=== PATIENT | male | born 1990 | race Caucasian/White ===

== ENCOUNTER 2016-10-22 19:20 | Inpatient (IN) | payer OTHER ==
[~2016-10-22] VITALS: Ht 177.8 cm; Wt 68.0 kg
--- NOTE | 2016-10-22 19:55 | NUR ---
INTAKE ASSESSMENT BP: 135/66, HR:86, RR:18, SpO2:97%, T:98.0 Pt is in stable condition and able to be admitted on the unit. Unit protocols regarding medications and vital signs Q4H were explained. Pt verbalized understanding. Will continue admission upon arrival on the unit.
[2016-10-22 20:00] VITALS: BP 135/66
[2016-10-22] MEDS ORDERED: MIRALAX 17 GM POWD.PACK PO PRN (20:15)
[2016-10-22] MEDS ORDERED: LORAZEPAM 2 MG/1 ML VIAL IM PRN (20:15)
[2016-10-22] MEDS ORDERED: MAG HYDROX/AL HYDROX/SIMETH 30 ML LIQUID UDC PO PRN (20:15)
[2016-10-22] MEDS ORDERED: ONDANSETRON 4 MG/2 ML VIAL IM PRN (20:15)
[2016-10-22] MEDS ORDERED: LORAZEPAM 1 MG TABLET PO PRN ×2 (20:15)
[2016-10-22] MEDS ORDERED: ACETAMINOPHEN 325 MG TABLET PO PRN (20:15)
[2016-10-22] MEDS ORDERED: BUPRENORPHINE HCL 2 MG TAB.SUBL SL PRN (20:15)
[2016-10-22] MEDS ORDERED: IBUPROFEN 600 MG TABLET PO PRN (20:15)
[2016-10-22] MEDS ORDERED: LOPERAMIDE HCL 2 MG CAPSULE PO PRN ×2 (20:15)
[2016-10-22] MEDS ORDERED: DICYCLOMINE HCL 20 MG TABLET PO PRN (20:15)
[2016-10-22] MEDS ORDERED: ONDANSETRON ODT 4 MG TAB.RAPDIS SL PRN (20:15)
--- NOTE | 2016-10-22 20:30 | NUR ---
ADMISSION NOTE Pt arrived ambulatory from [facility] to the third floor accompanied by a HOSPICE FELLOW at 1959. Pt is a 26 year old male admitted on 10/22/16 for Benzodiazepine, Methadone, Heroin, and Methamphetamine dependency. Pt is full code with NKA. He reports a PMHx of anxiety, depression, migraines, and neuropathic pain related to body building. He denies seizures and denies having a PCP. He reports home medications of: 1. Lyrica 300 mg, 2. Flexaril 10 mg TID 3. Imitrex 100 mg 4. Clonidine 0.1 mg. Pt reports he has not taken these medications in 5-6 months. He reports his longest sobriety is 22 months from November 2011-September 2013. Pt was previously at a [facility] in [place] and relapsed for 6 weeks. He reports he was on a methadone detox for 21 days. He describes his current use as: 1. Xanax 3 mg intermittently for 6 weeks Last dose: 10/21/16 2. Methadone daily for 21 days Last dose: Methadone 5 mg 10/17/16 3. Heroin 0.5 gram (smoke inahaltion) daily for 6 weeks. Last dose: 0.5 gram on 10/17/16 4. Methamphetamine 0.5 gram daily for 6 weeks. Last dose: 10/17/16 0.5 gram Upon assessment, pt is alert and oriented x4, anxious and cooperative, speech is clear and audible. Heart rate is regular. Pt denies chest pain or SOB. PERRLA, breathing is even and unlabored, lung sounds clear. Abdomen is soft and non-distended. Bowel sounds present. Pt reports constipation but verbalized his last BM was 10/21/16 in the AM. Skin is warm, dry and intact. MD aware of pt's admission. Pt was oriented to room and unit. Pt is safe with bed locked in lowest position, side rails up x2 and call light within reach. Will continue to monitor.
[2016-10-22 21:10] LABS: *AMPHETAMINE, URINE NEGATIVE (NEGATIVE); *BARBITURATE, URINE NEGATIVE (NEGATIVE); *CANNABINOID, URINE NEGATIVE (NEGATIVE); *COCCAINE, URINE NEGATIVE (NEGATIVE); *OPIATE, URINE NEGATIVE (NEGATIVE); *PHENCYCLIDINE SCREEN,URINE NEGATIVE (NEGATIVE)
[2016-10-22] MEDS ORDERED: HYDROXYZINE PAMOATE 25 MG CAPSULE PO PRN (21:30)
[2016-10-22] MEDS ORDERED: SUMATRIPTAN SUCCINATE 50 MG TABLET PO PRN (21:30)
[2016-10-22] MEDS ORDERED: MIRALAX 17 GM POWD.PACK PO ONE (21:30)
[2016-10-22] MEDS: CLONIDINE HCL 0.1 MG TABLET PO PRN (21:58)
--- NOTE | 2016-10-22 21:58 | NUR ---
PRN CLONIDINE, ROBAXIN, NICOTINE GUM and Ativan x1 Pt complains of anxiety,restlessness, body aches and nicotine cravings. PRN Clonidine, Robaxin, Nicotine gum and Ativan x1 administered as ordered. CIWA: 7, COWS:5. Breathing even and unlabored, safety measures in place. Will monitor effectiveness.
[2016-10-22] MEDS: DOCUSATE SODIUM 100 MG CAPSULE PO SCH (21:59)
[2016-10-22 22:00] LABS: BASOPHILS # (AUTO) 0.1 K/uL (0.0-8.0); BASOPHILS % (AUTO) 0.3 % (0.0-2.0); EOSINOPHILS # (AUTO) 0.2 K/uL (0.0-0.7); EOSINOPHILS % (AUTO) 1.2 % (0.0-7.0); HEMATOCRIT 38.1 % (40-50); HEMOGLOBIN 12.8 G/DL (14.0-18.0); LYMPHOCYTES # (AUTO) 2.7 K/UL (0.8-4.8); MEAN CORPUSCULAR HEMOGLOBIN 28.7 UUG (27.0-31.0); MEAN CORPUSCULAR HGB CONC 34 g/dL (32.0-37.0); MEAN CORPUSCULAR VOLUME 85.3 FL (82.0-92.0); MONOCYTES # (AUTO) 0.8 K/UL (0.1-1.30); MONOCYTES % (AUTO) 4.8 % (0.0-11.0); NEUTROPHILS # (AUTO) 13.2 K/UL (1.8-8.9); NEUTROPHILS % (AUTO) 77.7 % (38.5-71.5); PLATELET COUNT (AUTO) 267 K/UL (150-450); RED BLOOD CELL COUNT(AUTO) 4.47 MIL/UL (4.7-6.1)
[2016-10-22] MEDS ORDERED: LORAZEPAM 1 MG TABLET PO ONE (22:00)
[2016-10-22] MEDS: NICOTINE POLACRILEX 4 MG GUM-PK OF TEN BC PRN (22:02)
[2016-10-22] MEDS ORDERED: DOCUSATE SODIUM 100 MG CAPSULE PO ONE (22:04)
[2016-10-22] MEDS ORDERED: LORAZEPAM 1 MG TABLET ONE (22:04)
[2016-10-22] MEDS ORDERED: NICOTINE POLACRILEX 4 MG GUM-PK OF TEN BC ONE (22:05)
[2016-10-22 22:08] LABS: ETHANOL < 3 MG/DL (0-0)
[2016-10-22 22:12] LABS: ALANINE AMINOTRANSFERASE 23 U/L (16-63); ALKALINE PHOSPHATASE 64 U/L (50-136); ASPARTATE AMINOTRANSFERASE 14 U/L (15-37); BILIRUBIN,TOTAL 0.3 mg/dL (0.2-1.0); CARBON DIOXIDE 33 mmol/L (21-32); CHLORIDE 103 mmol/L (98-107); CREATININE 1.1 mg/dL (0.6-1.3); GLUCOSE 67 mg/dL (74-106); MAGNESIUM 1.8 mg/dL (1.8-2.4); POTASSIUM 3.5 mmol/L (3.5-5.1); TOTAL PROTEIN, SERUM 7.4 g/dL (6.4-8.2); UREA NITROGEN, BLOOD 9 mg/dL (7-18)
[2016-10-22 22:14] LABS: BAND % (MANUAL) 7 % (0-10); LYMPHOCYTES % (MANUAL) 16 % (20-40); MONOCYTES % (MANUAL) 4 % (2-10); NEUTROPHILS % (MANUAL) 73 % (42-75)
--- NOTE | 2016-10-22 22:58 | NUR ---
PRN CLONIDINE, ROBAXIN, NICOTINE GUM, ATIVAN REASSESSMENT PRN medications effective. Pt reports a decrease in anxiety, agitation and restlessness and nicotine cravings. CIWA:6. Breathing is even and unlabored, safety measures in place. Will monitor.
[2016-10-23] VITALS: BP 100/60
[2016-10-23] MEDS: NICOTINE POLACRILEX 4 MG GUM-PK OF TEN BC PRN (00:19)
--- NOTE | 2016-10-23 00:20 | NUR ---
PRN ZOFRAN, NICOTINE GUM Pt complains of nausea with no episode of vomiting and Nicotine cravings. PRN Zofran and Nicotine gum administered as ordered. Breathing is even and unlabored, safety measures in place. Will monitor.
[2016-10-23] MEDS ORDERED: NICOTINE POLACRILEX 4 MG GUM-PK OF TEN BC ONE (00:21)
--- NOTE | 2016-10-23 01:20 | NUR ---
PRN ZOFRAN/NICOTINE GUM REASSESSMENT PRN medications effective. Pt lying in bed with eyes closed noted to be asleep. No facial grimacing. Breathing is even and unlabored, safety measures in place. Will continue to monitor.
[2016-10-23] MEDS ORDERED: CLON0.1T PO (02:43)
[2016-10-23] MEDS ORDERED: flexeril (02:43)
[2016-10-23] MEDS ORDERED: PREG300C PO (02:43)
[2016-10-23] MEDS ORDERED: SUMA100T PO (02:43)
[2016-10-23] MEDS ORDERED: SODIUM SULFACETAMIDE TOP (03:54)
[2016-10-23 04:00] VITALS: BP 98/40
--- NOTE | 2016-10-23 04:00 | NUR ---
COWS/CIWA DEFERRED COWS and CIWA deferred d/t pt lying in bed with eyes closed noted to be asleep. Respirations 16, breathing is even and unlabored. Safety measures in place. Will monitor.
--- NOTE | 2016-10-23 07:12 | NUR ---
END OF SHIFT Pt is a 26 year old male patient admitted on 10/22/16 for Methadone, Benzodiazepine, Heroin, and Methamphetamine dependency. Pt is full code with NKA. He reports a PMHx of anxiety, depression, neuropathic pain, and Hep C (2014). Pt received PRN Ativan, Nicotine Gum, Clonidine, Robaxin and Zofran. He slept a total of 7 hrs, Intake: 547mL, Void: x1, BM:0, COWS;5, CIWA:7. Pt remains alert and oriented x4, breathing is even and unlabored. Safety measures in place. Endorsed to oncoming shift.
--- NOTE | 2016-10-23 07:43 | NUR ---
Start of shift note; Received report from night nurse. Patient is a 26 year old male admitted on 10/22/16 for Opiate/ Benzo withdrawals. Patient to be evaluated for taper orders today. Patient reported history of anxiety, depression, HEP C. Patient received PRN Clonidine, Robaxin and nicotine gum all noted to be effective per night nurse. Patient's last COWS is 7 and last CIWA is 5. Patient is on fall and seizure precaution. Bed in lowest position, call light within reach. Will continue to monitor patient.
[2016-10-23 08:00] VITALS: BP 92/60
[2016-10-23] MEDS: NICOTINE 14 MG/24HR PATCH TD SCH (08:48)
[2016-10-23] MEDS: MULTIVITAMINS,THERAPEUTIC TABLET PO SCH (08:48)
[2016-10-23] MEDS: METHOCARBAMOL 750 MG TABLET PO PRN ×3 (08:54→21:49)
--- NOTE | 2016-10-23 08:54 | NUR ---
PRN medication; Patient is complaining of muscle aches, PRN Robaxin 750mg PO given for muscle aches. Will continue to monitor patient.
[2016-10-23] MEDS ORDERED: TUBERCULIN,PURIF.PROT.DERIV. 5 TU/0.1 ML TEST ID ONE (09:00)
[2016-10-23] MEDS ORDERED: PREGABALIN 25 MG CAPSULE PO SCH (09:00)
--- NOTE | 2016-10-23 09:54 | NUR ---
Re-assessment; Patient stated decrease in muscle aches. PRN Robaxin is effective.
[2016-10-23 12:00] VITALS: BP 114/68
[2016-10-23] MEDS: CLONIDINE HCL 0.1 MG TABLET PO PRN ×2 (12:42→21:49)
--- NOTE | 2016-10-23 12:42 | NUR ---
PRN medication; Patient appears to be agitated and complaining of diaphoresis. PRN Clonidine 0.1mg PO given for agitation and diaphoresis per MD order. Will continue to monitor patient.
[2016-10-23] MEDS ORDERED: GABAPENTIN 300 MG CAPSULE PO SCH (13:00)
--- NOTE | 2016-10-23 13:42 | NUR ---
Re-assessment; Patient appears calm and comfortable. Diaphoresis improved. PRN medications are effective.
[2016-10-23] MEDS ORDERED: BISACODYL 5 MG TABLET.DR PO PRN (14:30)
[2016-10-23] MEDS ORDERED: MAGNESIUM CITRATE 296 ML BOTTLE PO PRN (14:30)
[2016-10-23] MEDS: BACLOFEN 10 MG TABLET PO SCH ×2 (14:46→21:49)
[2016-10-23 16:00] VITALS: BP 94/64
[2016-10-23] MEDS: PREGABALIN 100 MG CAPSULE PO SCH (17:01)
--- NOTE | 2016-10-23 17:12 | NUR ---
PRN medication; PRN Robaxin 750mg PO PRN given for muscle aches. PRN Magnesium Citrate given to patient for constipation. Will continue to monitor patient for effectiveness of medication.
--- NOTE | 2016-10-23 18:12 | NUR ---
Re-assessment; Patient stated decreased muscle aches, patient also reported one bowel movement. PRN medication were effective.
--- NOTE | 2016-10-23 18:29 | NUR ---
End of shift note; Patient is AOX4. Patient is a 26 year old male admitted on 10/22/16 for Opiate/ Benzo withdrawals. Patient to be evaluated for taper orders today. Patient reported history of anxiety, depression, HEP C. Patient remained compliant with medication regime. Medications were effective in reducing withdrawal symptoms. Met all needs.
--- NOTE | 2016-10-23 19:15 | NUR ---
START OF SHIFT NOTE : Patient is a 26 year old male admitted on 10/22/16 for Opiate/ Benzo withdrawals. Patient to be evaluated for taper orders today. Patient reported history of anxiety, depression, HEP C. pt is alert and oriented x4, anxious and cooperative, speech is clear and audible. Heart rate is regular. Pt denies chest pain or SOB. PERRLA, breathing is even and unlabored, lung sounds clear. Abdomen is soft and non-distended. Bowel sounds present.. Patient's last COWS is 2 and last CIWA is 4 at 16:00. Safety measures in place : bed on lowest position with side rails x2 up for safety, call light within reach. Will continue to monitor closely and offer help.
[2016-10-23 20:00] VITALS: BP 125/80
[2016-10-23] MEDS: DOCUSATE SODIUM 100 MG CAPSULE PO SCH (21:00)
--- NOTE | 2016-10-23 21:00 | NUR ---
PRN BENADRYL, CATAPRES, ROBAXINE Pt. complains of sleeplessness , flashes, muscle spasm. PRN BENADRYL, CATAPRES, ROBAXINE given as ordered.Safety measures in place : bed on lowest position with side rails x2 up for safety, call light within reach. Will continue to monitor closely and offer help.
[2016-10-23] MEDS: diphenhydrAMINE 50 MG CAPSULE PO PRN (21:49)
--- NOTE | 2016-10-23 22:00 | NUR ---
REASSESSMENT JOSUE MEDINA ROBAXINE Pt. is sleeping , RR=16 unlabored and even. Safety measures in place : bed on lowest position with side rails x2 up for safety, call light within reach. Will continue to monitor closely and offer help.
--- NOTE | 2016-10-24 06:37 | NUR ---
END OF SHIFT NOTE : Patient is a 26 year old male admitted on 10/22/16 for Opiate/ Benzo withdrawals. Patient to be evaluated for taper orders today. Patient reported history of anxiety, depression, HEP C. pt is alert and oriented x4, anxious and cooperative, speech is clear and audible. Heart rate is regular. Pt denies chest pain or SOB. PERRLA, Pt remains compliant with the treatment plan. No PRN BENADRYL, ROBAXIN, CATAPRES given during my shift. V/S remain WNL. RR=16, even and unlabored, lungs clear upon auscultation, abdomen soft and non- distended. Pt denies nausea, vomiting . LAST CIWA=2 ,COWS= 4 at 0400 , [id number] ml, voided x4 , slept 7 hours. Safety measures in place : bed on lowest position with side rails x2 up for safety, call light within reach. Will continue to monitor closely and offer help.
[2016-10-24 06:59] LABS: BASOPHILS % (AUTO) 0.6 % (0.0-2.0); EOSINOPHILS # (AUTO) 0.4 K/uL (0.0-0.7); HEMATOCRIT 35.1 % (40-50); HEMOGLOBIN 11.6 G/DL (14.0-18.0); LYMPHOCYTES # (AUTO) 2.7 K/UL (0.8-4.8); MEAN CORPUSCULAR HEMOGLOBIN 28.6 UUG (27.0-31.0); MEAN CORPUSCULAR HGB CONC 33 g/dL (32.0-37.0); MEAN CORPUSCULAR VOLUME 86.1 FL (82.0-92.0); MONOCYTES # (AUTO) 0.8 K/UL (0.1-1.30); MONOCYTES % (AUTO) 9.8 % (0.0-11.0); NEUTROPHILS # (AUTO) 4.4 K/UL (1.8-8.9); NEUTROPHILS % (AUTO) 51.6 % (38.5-71.5); PLATELET COUNT (AUTO) 266 K/UL (150-450); RED BLOOD CELL COUNT(AUTO) 4.07 MIL/UL (4.7-6.1)
--- NOTE | 2016-10-24 07:05 | NUR ---
Start of Shift Endorsement received from nightshift nurse. Pt is a 26 y/o male admitted for methadone dependence. PT has been placed under observation for withdrawal symptoms. Pt is tolerating the detox process and mildly withdrawing AEB CIWA 2 and COWS 2 at 0400. Pt reports sleeping 7 hours. Pt received PRN Benadryl, Clonidine and Robaxin. VS WNL. Full Code. PT is alert and oriented x4. Pt is in STABLE condition at this time. Remains compliant with medication and diet regimen. All needs have been met, All safety measures in place per hospital policy. Bed in lowest position, side rails up x2, call-light within reach. Will continue to monitor
[2016-10-24 07:09] LABS: CREATININE 1.2 mg/dL (0.6-1.3); MAGNESIUM 2.1 mg/dL (1.8-2.4); POTASSIUM 5.4 mmol/L (3.5-5.1); WHITE BLOOD COUNT (AUTO) 8.3 K/UL (4.0-11.2)
[2016-10-24 08:00] VITALS: BP 95/55
[2016-10-24] MEDS: NICOTINE 14 MG/24HR PATCH TD SCH (09:00)
[2016-10-24] MEDS: MULTIVITAMINS,THERAPEUTIC TABLET PO SCH (09:29)
[2016-10-24] MEDS: BACLOFEN 10 MG TABLET PO SCH ×3 (09:29→21:08)
[2016-10-24] MEDS: PREGABALIN 100 MG CAPSULE PO SCH ×2 (09:29→17:10)
[2016-10-24 10:07] LABS: HEPATITIS B SURFACE AG Negative (Negative)
[2016-10-24] MEDS: VENLAFAXINE XR 37.5 MG CAP.SR.24H PO SCH (10:31)
[2016-10-24 12:00] VITALS: BP 100/60
[2016-10-24] MEDS: CLONIDINE HCL 0.1 MG TABLET PO PRN ×2 (14:10→21:07)
[2016-10-24] MEDS ORDERED: SODIUM POLYSTYRENE SULFONATE 15 G/60 ML LIQUID UDC PO ONE (15:00)
[2016-10-24 16:00] VITALS: BP 100/59
[2016-10-24] MEDS ORDERED: PREGABALIN 100 MG CAPSULE PO SCH (17:00)
[2016-10-24] MEDS: PREGABALIN 25 MG CAPSULE PO SCH (17:10)
--- NOTE | 2016-10-24 19:09 | NUR ---
End of Shift Endorsement given to nightshift nurse. Pt is a 26 y/o male admitted for methadone dependence. PT has been placed under observation for withdrawal symptoms. Pt is tolerating the detox process and mildly withdrawing AEB CIWA 1 and COWS 3 at 1600. Pt has participated in activities and groups. PT continues to remain under observation and withdrawal symptoms are being treated by non-taper medications. Pt received PRN Clonidine for chills per Dr. Gage. Encouraged pt to drink more fluids and to report any new symptoms he experiences right away. Pt has received Kayexalate for hyperkalemia. Intake: 2465ml, Void x5, BM x3. VS WNL. Full Code. PT is alert and oriented x4. Pt is in STABLE condition at this time. Remains compliant with medication and diet regimen. All needs have been met, All safety measures in place per hospital policy. Bed in lowest position, side rails up x2, call-light within reach. Will continue to monitor
--- NOTE | 2016-10-24 19:30 | NUR ---
START OF SHIFT Pt is a 26 y/o male admitted for methadone dependence. Pt is under observation for withdrawal symptoms.No tapers ordered,Pt is on PRN medications for withdrawal symptoms. Last CIWA 1 and COWS 3 at 1600.NKA. Pt is on Full Code; alert and oriented x 4. Pt is compliant with medication and diet regimen. All safety measures in place per hospital policy. Bed in lowest position, side rails up x2, call-light within reach. Will continue to monitor.
[2016-10-24 20:00] VITALS: BP 110/60
[2016-10-24] MEDS: DOCUSATE SODIUM 100 MG CAPSULE PO SCH (21:00)
[2016-10-24] MEDS: NAPROXEN 500 MG TABLET PO SCH (21:08)
--- NOTE | 2016-10-24 21:12 | NUR ---
PRN MEDS PRN CLONIDINE GIVEN ORDERED FOR C/O ANXIETY AND HOT.COLD FLASHES PER PT REQUEST.WILL MONITOR.
--- NOTE | 2016-10-24 22:15 | NUR ---
PRN CLONIDINE IS EFFECTIVE IN REDUCING SYMPTOMS.PT STATES FEELING BETTER.WILL CONTINUE TO MONITOR.
[2016-10-25] VITALS: BP 92/51
[2016-10-25 04:00] VITALS: BP 81/46
--- NOTE | 2016-10-25 06:53 | NUR ---
END OF SHIFT Pt is a 26 y/o male admitted for methadone dependence. Pt is under observation for withdrawal symptoms.No tapers ordered,Pt is on PRN medications for withdrawal symptoms. Last CIWA 1 and COWS 1 at 0400.NKA. Pt is on Full Code; alert and oriented x 4. Pt is compliant with medication and diet regimen. PRN Clonidine was given last night and was effective.Pt slept 6 hrs,fluid intake was 795 mls,voided x 2 . All safety measures in place per hospital policy. Bed in lowest position, side rails up x2, call-light within reach. Will continue to monitor.
[2016-10-25 07:23] LABS: CREATININE 0.9 mg/dL (0.6-1.3); MAGNESIUM 1.9 mg/dL (1.8-2.4); POTASSIUM 4.8 mmol/L (3.5-5.1)
--- NOTE | 2016-10-25 07:38 | NUR ---
START OF SHIFT NOTE patient is laying in bed resting this morning with respirations even and unlabored. Patient slept 6 hours last night per night nurse, christofer COWS 1 CIWA 1. Patient is not on a taper. He was given clonidine last night PRN for increased anxiety, medication was effective. All safety measures are in place, will continue to monitor.
[2016-10-25 08:33] VITALS: BP 111/76
[2016-10-25] MEDS: NAPROXEN 500 MG TABLET PO SCH ×2 (08:38→21:09)
[2016-10-25] MEDS: PREGABALIN 25 MG CAPSULE PO SCH ×2 (08:38→17:11)
[2016-10-25] MEDS: BACLOFEN 10 MG TABLET PO SCH ×3 (08:38→21:10)
[2016-10-25] MEDS: VENLAFAXINE XR 37.5 MG CAP.SR.24H PO SCH (08:38)
[2016-10-25] MEDS: MULTIVITAMINS,THERAPEUTIC TABLET PO SCH (08:38)
[2016-10-25] MEDS: FAMOTIDINE 20 MG TABLET PO SCH (08:39)
[2016-10-25] MEDS: NICOTINE 14 MG/24HR PATCH TD SCH (08:39)
[2016-10-25] MEDS: PREGABALIN 100 MG CAPSULE PO SCH ×2 (08:39→17:10)
[2016-10-25] MEDS: METHOCARBAMOL 750 MG TABLET PO PRN (08:46)
--- NOTE | 2016-10-25 08:47 | NUR ---
ANNMARIE TRACY patient complaining of back pain. Will continue to monitor patient and reassess
--- NOTE | 2016-10-25 09:15 | NUR ---
PRN REASSESSMENT Patient expressed pain in his back is slightly better after taking robaxin. Will continue to monitor
[2016-10-25] MEDS ORDERED: DICY20TA28 PO (10:12)
[2016-10-25] MEDS ORDERED: DIPH50CA37 PO (10:12)
[2016-10-25] MEDS ORDERED: VENL37.55 PO (10:12)
[2016-10-25] MEDS ORDERED: SUMA50TA PO (10:12)
[2016-10-25] MEDS ORDERED: FAMO20TA8 PO (10:12)
[2016-10-25] MEDS ORDERED: NAPR500T3 PO (10:12)
[2016-10-25] MEDS ORDERED: NICO1PAT25 TD (10:12)
[2016-10-25] MEDS ORDERED: HYDR-3895 PO (10:12)
[2016-10-25] MEDS ORDERED: PREG100C PO (10:12)
[2016-10-25] MEDS ORDERED: BACL10TA PO (10:12)
[2016-10-25 12:33] VITALS: BP 104/59
[2016-10-25 15:29] LABS: *AMPHETAMINE, URINE NEGATIVE (NEGATIVE); *BARBITURATE, URINE NEGATIVE (NEGATIVE); *CANNABINOID, URINE NEGATIVE (NEGATIVE); *COCCAINE, URINE NEGATIVE (NEGATIVE); *OPIATE, URINE NEGATIVE (NEGATIVE); *PHENCYCLIDINE SCREEN,URINE NEGATIVE (NEGATIVE)
[2016-10-25 17:21] VITALS: BP 109/62
--- NOTE | 2016-10-25 18:41 | NUR ---
325 END OF SHIFT NOTE Patient is a 26 year old male admitted on 10/22/16 for methadone, Xanax, heroin, and meth. patient was never on a taper. Patients last COWS 2 CIWA 2. Patient was given Robaxin for back pain with effectiveness. Patients vital signs remained stable throughout the day. Plan is for patient to be discharged tomorrow to [facility]. All needs have been met. Will continue to monitor patient until endorsed to oncoming night nurse.
--- NOTE | 2016-10-25 19:30 | NUR ---
START OF SHIFT Pt is a 26 y/o male admitted for methadone dependence. Pt is under observation for withdrawal symptoms.No tapers ordered,Pt is on PRN medications for withdrawal symptoms. Last CIWA 2 and COWS 2 .NKA. Pt is on Full Code; alert and oriented x 4. Pt is compliant with medication and diet regimen. Pt is scheduled [facility] morning. All safety measures in place per hospital policy. Bed in lowest position, side rails up x2, call-light within reach. Will continue to monitor.
[2016-10-25 20:00] VITALS: BP 106/57
[2016-10-25] MEDS: DOCUSATE SODIUM 100 MG CAPSULE PO SCH (21:00)
[2016-10-25] MEDS: diphenhydrAMINE 50 MG CAPSULE PO PRN (21:09)
[2016-10-25] MEDS: CLONIDINE HCL 0.1 MG TABLET PO PRN (21:10)
--- NOTE | 2016-10-25 21:10 | NUR ---
PRN MEDS PRN CLONIDINE AND BENADRYL GIVEN ORDERED FOR ANXIETY AND INSOMNIA PER PT REQUEST.WILL MONITOR.
--- NOTE | 2016-10-25 22:10 | NUR ---
PRN F/U PT VERBALIZES A DECREASE IN ANXIETY,STILL AWAKE IN BED,RESTING,FEELING SLEEPY,DOES NOT WANT TO BE WOKEN UP FOR VITAL SIGNS IF SLEEPING.WILL CONTINUE TO MONITOR.
--- NOTE | 2016-10-26 | NUR ---
V/S REFUSED.COWS/CIWA DIFFERED-- PT SLEEPING COMFORTABLY IN BED,BREATHING IS EVEN AND NON LABORED,NO S/S OF DISTRESS NOTED.WILL CONTINUE TO MONITOR.
--- NOTE | 2016-10-26 04:00 | NUR ---
Pt remains sleeping in bed,no s/s of distress noted;refused v/s,COWS/CIWA differed due to Pt being asleep.Will continue to monitor.
--- NOTE | 2016-10-26 06:49 | NUR ---
END OF SHIFT Pt is a 26 y/o male admitted for methadone dependence. Pt is under observation for withdrawal symptoms.No tapers ordered,Pt is on PRN medications for withdrawal symptoms. Last CIWA 2 and COWS 2 .NKA. Pt is on Full Code; alert and oriented x 4. Pt is compliant with medication and diet regimen.Pt was given Clonidine and Benadryl PRN and was effective. Pt slept 7 hrs,fluid intake was 1896 mls,voided x 4. Pt is scheduled for discharge to [facility] this morning. All safety measures in place per hospital policy. Bed in lowest position, side rails up x2, call-light within reach. Will continue to monitor.
--- NOTE | 2016-10-26 07:48 | NUR ---
START OF SHIFT Received report from night nurse. 26 year old male patient admitted on 10/22/16 for opiate, benzo and methamphetamine withdrawals. Pt has completed ordered taper and is medically cleared for discharge. Alert and Oriented x4, reports past medical history of anxiety,depression, neuropathic pain and Hep C. Pt received PRN Clonidine and Benadryl administered and effective, pt slept for 7 hours. Most recent COWS are 2 and CIWA is 2, V/S remain WNL. Pt is awake, walking on the unit, denies discomfort at this time, no acute distress noted. Pt verbalizes feelings, safety measures are in place, will continue to monitor.
[2016-10-26 08:13] VITALS: BP 107/68
[2016-10-26] MEDS: MULTIVITAMINS,THERAPEUTIC TABLET PO SCH (08:28)
[2016-10-26] MEDS: NAPROXEN 500 MG TABLET PO SCH (08:28)
[2016-10-26] MEDS: FAMOTIDINE 20 MG TABLET PO SCH (08:28)
[2016-10-26] MEDS: PREGABALIN 25 MG CAPSULE PO SCH (08:28)
[2016-10-26] MEDS: BACLOFEN 10 MG TABLET PO SCH (08:28)
[2016-10-26] MEDS: PREGABALIN 100 MG CAPSULE PO SCH (08:28)
[2016-10-26] MEDS: NICOTINE 14 MG/24HR PATCH TD SCH (08:30)
[2016-10-26] MEDS ORDERED: VENLAFAXINE XR 37.5 MG CAP.SR.24H PO SCH (09:00)
[2016-10-26] MEDS ORDERED: VENLAFAXINE XR 75 MG CAP.SR.24H PO SCH (09:00)
--- NOTE | 2016-10-26 09:22 | NUR ---
D/C NOTES Pt is A/O x4. V/S remain WNL. Pt denies SI/HI or hallucinations. Pt shows no s/s of acute withdrawal at this time, and is stable. MD has medically cleared pt for d/c. Education on Hepatitis C, smoking cessation and medication side effects provided. Pt verbalizes understanding. All pt belongings are in belonging bag, including prescriptions, and medications. Refuses PNU vaccination. Pt is being accompanied by PORCELAIN TECHNICIAN at this time to be transported to rehab. All needs met.
== END 2016-10-26 09:22 | disposition home or self-care (01) | DRG 895 ==
LOC: SRC 19:20
PROVIDERS: ADMIT Internal Medicine; ATTEND Internal Medicine
PROC: HZ2ZZZZ Detoxification Services for Substance Abuse Treatment (ICD-10-PCS; principal; 2016-10-22)
PROC: HZ41ZZZ Group Counseling for Substance Abuse Treatment, Behavioral (ICD-10-PCS; 2016-10-23)
PROC: HZ31ZZZ Individual Counseling for Substance Abuse Treatment, Behavioral (ICD-10-PCS; 2016-10-25)
DX: F11.23 Opioid dependence with withdrawal (principal); F15.20 Other stimulant dependence, uncomplicated; E87.3 Alkalosis; F13.230 Sedative, hypnotic or anxiolytic dependence with withdrawal, uncomplicated; F17.290 Nicotine dependence, other tobacco product, uncomplicated; G43.909 Migraine, unspecified, not intractable, without status migrainosus; F41.9 Anxiety disorder, unspecified; F90.9 Attention-deficit hyperactivity disorder, unspecified type; G89.29 Other chronic pain; Z79.899 Other long term (current) drug therapy; Z82.49 Family history of ischemic heart disease and other diseases of the circulatory system; Z82.3 Family history of stroke; Z81.8 Family history of other mental and behavioral disorders; E86.0 Dehydration; K59.03 Drug induced constipation; M54.10 Radiculopathy, site unspecified; D64.9 Anemia, unspecified; D72.823 Leukemoid reaction; F32.9 Major depressive disorder, single episode, unspecified; B19.20 Unspecified viral hepatitis C without hepatic coma; E87.5 Hyperkalemia; Z87.74 Personal history of (corrected) congenital malformations of heart and circulatory system
CPT/HCPCS: 36415; 70030-TC; 80307; 80346; 83735; 85025; 86580; 86592; 86705; 86803; 87340; 87806; A4663; G0480; Q0162; Q0163